=== PATIENT | male | born 1955 | race Caucasian/White ===

== ENCOUNTER → 2019-02-13 | Outpatient (CLI) | payer BC ==
[~2019-02-13] MED LIST: FENTANYL PF 100 MCG/2ML IVPush ONE; LIDOCAINE/PF 1%-EPI 1:200K, 30 ML SQ ONE; MIDAZOLAM 1 MG/ML, 5ML IVPush ONE
== END | disposition home or self-care (01) ==
LOC: ROC 07:41
PROVIDERS: ATTEND Radiology Radiation Oncology
DX: C61 Malignant neoplasm of prostate (principal)
CPT/HCPCS: 55876; 76942; 77332; 99156; A4648; J2250; J3010; J3490

== ENCOUNTER 2019-02-20 10:19 | Outpatient (CLI) | payer BC | END 2019-02-20 23:59 | disposition home or self-care (01) | LOC: CFH 10:19 | PROVIDERS: ATTEND Radiology Radiation Oncology | DX: C61 Malignant neoplasm of prostate (principal) | CPT/HCPCS: 72195 ==

== ENCOUNTER 2019-12-13 07:10 | Outpatient (CLI) | payer MEDICARE, BC | END 2019-12-13 23:59 | disposition home or self-care (01) | LOC: ROC 07:10 | PROVIDERS: ATTEND Radiology Radiation Oncology | DX: C61 Malignant neoplasm of prostate (principal) | CPT/HCPCS: G0463-95 ==

== ENCOUNTER 2020-12-04 07:49 | Outpatient (CLI) | payer MEDICARE, BC | END 2020-12-04 23:59 | disposition home or self-care (01) | LOC: ROC 07:49 | PROVIDERS: ATTEND Radiology Radiation Oncology | DX: Z08 Encounter for follow-up examination after completed treatment for malignant neoplasm (principal); Z85.46 Personal history of malignant neoplasm of prostate | CPT/HCPCS: G2251 ==